=== PATIENT | male | born 1975 | race Caucasian/White ===

== ENCOUNTER 2018-07-23 04:00 | Emergency (ER) | payer MEDICAID ==
[~2018-07-23] VITALS: Ht 182.9 cm; Wt 100.0 kg
[~2018-07-23 04:00] MED LIST: FLO0.4C PO
[2018-07-23 04:10] VITALS: BP 141/98
== END 2018-07-23 05:38 | disposition left against medical advice (07) ==
LOC: ER 04:01
DX: M25.511 Pain in right shoulder (principal); V29.9XXA Motorcycle rider (driver) (passenger) injured in unspecified traffic accident, initial encounter; Y93.89 Activity, other specified; Y92.488 Other paved roadways as the place of occurrence of the external cause; Y99.8 Other external cause status
CPT/HCPCS: 73030; 99281

== ENCOUNTER 2019-11-11 15:55 | Emergency (ER) | payer MEDICAID ==
[~2019-11-11] VITALS: Ht 180.3 cm; Wt 90.0 kg
[~2019-11-11 15:55] MED LIST changes: +DOCU100C41 PO
[2019-11-11] MEDS ORDERED: mag hydrox/Alum hydrox/simeth 30ml oral suspension PO ONE (16:50)
[2019-11-11] MEDS ORDERED: ketorolac tromethamine 15mg/ml inj. IM ONE (17:00)
--- NOTE | 2019-11-11 17:21 | NUR ---
Pt. to CT
[2019-11-11 18:04] LABS: ALBUMIN 3.8 G/DL (3.4-5.0); ANION GAP 8 (8-16); BLOOD UREA NITROGEN 16 MG/DL (7-18); BUN/CREATININE RATIO 20.3 (5.4-32.0); CALCIUM 8.9 MG/DL (8.5-10.1); CHLORIDE 102 MMOL/L (99-107); CREATININE 0.79 MG/DL (0.60-1.10); GLUCOSE 96 MG/DL (70-104); POTASSIUM 3.7 MMOL/L (3.5-5.1); SODIUM 138 MMOL/L (135-145); TOTAL CARBON DIOXIDE 27.6 MMOL/L (24-32); eGFR > 90 ML/MIN
[2019-11-11 18:08] LABS: BASOPHILS % (AUTO) 0.3 % (0-1); EOSINOPHILS # (AUTO) 0.1 X10'3 (0-0.9); EOSINOPHILS % (AUTO) 1.3 % (0-6); HEMOGLOBIN 16.6 g/dl (14.0-17.9); LYMPHOCYTES # (AUTO) 0.9 X10'3 (1.1-4.8); LYMPHOCYTES % (AUTO) 10.6 % (21-51); MEAN CORPUSCULAR HEMOGLOBIN 30.8 PG (27.0-31.0); MEAN CORPUSCULAR HGB CONC 34.5 g/dL (33.0-36.5); MEAN CORPUSCULAR VOLUME 89.3 FL (78-98); MEAN PLATELET VOLUME 9.6 FL (7.4-10.4); MONOCYTES # (AUTO) 0.6 X10'3 (0-0.9); MONOCYTES % (AUTO) 7.6 % (2-12); NEUTROPHILS # (AUTO) 6.8 X10'3 (1.8-7.7); NEUTROPHILS % (AUTO) 80.2 % (42-75); PLATELET COUNT 197 X10'3 (140-440); RED BLOOD COUNT 5.38 X10'6 (4.70-6.10); RED CELL DISTRIBUTION WIDTH 13.7 % (11.5-14.5); WHITE BLOOD COUNT 8.5 X10'3 (4.5-11.0)
[2019-11-11] MEDS ORDERED: MAG355OR18 PO (18:26)
[2019-11-11 18:45] VITALS: BP 121/78
== END 2019-11-11 18:43 | disposition home or self-care (01) ==
LOC: ER 15:55
DX: R07.81 Pleurodynia (principal); M54.2 Cervicalgia; G89.29 Other chronic pain; F32.9 Major depressive disorder, single episode, unspecified; F12.90 Cannabis use, unspecified, uncomplicated; F15.90 Other stimulant use, unspecified, uncomplicated; F17.220 Nicotine dependence, chewing tobacco, uncomplicated; Z86.19 Personal history of other infectious and parasitic diseases; Z79.899 Other long term (current) drug therapy; W17.89XA Other fall from one level to another, initial encounter; Y93.89 Activity, other specified; Y92.89 Other specified places as the place of occurrence of the external cause; Y99.8 Other external cause status
CPT/HCPCS: 36415; 71045; 71250; 80048; 84484; 85025; 93005; 96372; 99284; J1885

== ENCOUNTER 2021-11-03 23:48 | Emergency (ER) | payer MEDICAID ==
[~2021-11-03] VITALS: Ht 180.3 cm; Wt 109.5 kg
[2021-11-04 00:14] VITALS: BP 135/89
--- NOTE | 2021-11-04 02:26 | NUR ---
PT STATES LEAVING DUE TO WAIT TIME
== END 2021-11-04 02:27 | disposition left against medical advice (07) ==
LOC: ER 23:49
DX: B99.8 Other infectious disease (principal); Z53.21 Procedure and treatment not carried out due to patient leaving prior to being seen by health care provider